=== PATIENT | female | born 2005 | race Caucasian/White ===

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

== ENCOUNTER 2025-06-27 11:43 | Outpatient (REF) | payer BC, SELFPAY ==
[2025-06-27 14:33] LABS: MANUAL DIFF FLAG NO
[2025-06-27 14:38] LABS: Hematocrit 35.0 % (37.0-47.0); Hemoglobin 11.8 g/dl (12.0-16.0); Imm Gran Abs Auto 0.01 X10*3/uL (0.00-0.03); Imm Gran Pct Auto 0.2 % (0.0-0.4); Lymphocytes Absolute Auto 1.8 X10*3/uL (1.2-4.9); Mean Corpuscular HGB Conc 33.7 g/dl (31.0-35.0); Mean Corpuscular Hemoglobin 30.8 pg (27.0-33.0); Mean Corpuscular Volume 91.4 fL (80.0-98.0); NRBC Abs Auto 0.000 X10*3/uL (0.0-0.012); NRBC Pct Auto 0.0 /100WBC (0.0-0.2); Platelet Count 243 X10*3/uL (160-400); Red Blood Count 3.83 X10*6/uL (4.20-5.50); White Blood Count 4.2 X10*3/uL (4.8-10.8)
[2025-06-27 14:53] LABS: Alanine Aminotransferase 21 U/L (0-31); Albumin Level 4.5 g/dL (3.5-5.0); Alkaline Phosphatase 51 U/L (39-117); Aspartate Amino Transferase 26 U/L (5-31); Total Protein 6.6 g/dL (6.5-8.0)
[2025-06-27 15:11] LABS: Cholesterol 124 mg/dL (<200); HDL Cholesterol 48 mg/dL (>40); Magnesium 1.9 mg/dL (1.6-2.6); Triglycerides 85 mg/dL (<150)
[2025-06-27 15:30] LABS: Folate 8.3 ng/mL (> or = 4.0); Vitamin B12 283 pg/mL (200-900)
== END 2025-06-27 11:44 | disposition home or self-care (01) ==
LOC: HO.WFDLDS 11:43
PROVIDERS: Referring Provider Podiatrist; Visit Provider Physician Assistant
DX: F41.1 Generalized anxiety disorder (principal); Z13.220 Encounter for screening for lipoid disorders; Z13.6 Encounter for screening for cardiovascular disorders
CPT/HCPCS: 36415; 80061; 80076; 82607; 82746; 83735; 84443; 85025

== ENCOUNTER 2025-09-02 13:54 | Outpatient (REF) | payer BC, SELFPAY ==
--- OUTSIDE RECORDS SUMMARY | 2025-09-02 07:15 | XMS_ITS ---
Author Organization [facility] Address [address] [place] [address] Care Team Providers Care Systems Security Consultant Name Role Phone Kady Montalvo Primary Care Provider Indigo Garcia Unavailable [phone] Allergies No Known Allergies REASON FOR VISIT Fungal Nails, Skin Problem Medications Medication SIG (Take, Route, Frequency, Duration) Notes Start Date End Date Status clonazePAM Not-Takin g Accutane 20 MG as directed Orally Not-Taking Ciclopirox 8 % 1 application daily to toenails Externally Once a day; Duration: 360 days 08/07/2024 Not-Taking Naftin 1 % 1 application to bot h feet and between toes twice a day Externally Twice a day; Duration: 30 days 06/27/2025 Active Ciclopirox Olamine 0.77 % 1 application Externally Twice a day to both feet and between toes; Duration: 30 days 07/02/2025 Active Terbinafine HCl 250 MG 1 tablet Orally O nce a day; Duration: 30 days Active Doxycycline 40 MG 1 capsule in the morning on an empty stomach Orally Once a day Active Spironolactone 25 MG 1 tablet Orally Onc e a day Active buPROPion HCl ER (XL) 150 MG Oral; Duration: 30 Days Active Venlafaxine HCl ER 75 MG TAKE 1 CAPSULE BY MOUTH IN THE MORNING Oral; Duration: 30 Days Active Social History Tobacco Use: Social History Observation Description Date Details (start date - stop date) Never Smoker NA - NA Tobacco use other than smoking: Question Answer Notes Are you an other tobacco user? No Tobacco Control (Standard) Question Answer Notes Tobacco use: Nonsmoker Additional Findings: Tobacco non-user Current no nsmoker AUDIT-C (Standard) Question Answer Notes Did you have a drink containing alcohol in the p ast year? No Points 0 Interpretation Negative Vital Signs Height 5ft 9in in 09/02/2025 Weight 170 lbs 09/02/2025 BMI 25.1 kg/m2 09/02/2025 Blood pressure systolic 110 mm Hg 09/02/20 25 Blood pressure diastolic 70 mm Hg 025 BMI Percentile 79.3 % 09/02/2025 Encounters Encounter Location Date Provider Diagnosis [facility] [address] 09/02/2025 Indigo Perica Pain in right toe(s) M79.674 ; Onychomycosis B35.1 ; Pain in left toe(s) M79.675 and Tinea pedis of both feet B35.3 Assessments Encounter Date Diagnosis (ICD Code) Assessment Notes Treatment Notes Treatment Clinical Notes Section Notes 09/02/2025 Pain in right toe(s) (ICD-10 - M79.674) 09/02/2025 Onychomycosis (ICD-10 - B35.1) 09/02/2025 Pain in left toe(s) (ICD-10 - M79.675) 09/02/2025 Tinea pedis of both feet (ICD-10 - B35.3) Plan Of Treatment Pending Test Test Name Order Date *Liver Function Test (LFT) 09/02/2025 Next Appt Details Follow Up: prn, Reason: Progress Notes * DONALDToreyJohnDOB: [birth year] (19 yo F)Acc No.[id number]:09/02/2025 Progress Note Patient: John MEDRANO Provider: Kaylynn Arana DPM :2005 A ge:19 Y S ex:Female Date:09/02/2025 Address:[address] [place] [address], [id number] Pcp:Kady Montalvo Subjective: * Chief Complaints: * F ungal NailsSkin Problem * HPI: P ainful Nails: Nature: a alexander, tender, discolored, thick. Location: B oth feet. Duration: s everal years. Course: , improved. Aggravated by: s hoegear causing difficulty standing/walking. Treatments: , OTC Topical Antifungal, Ciclopirox Rx topical gel/solution, Lamisil, Oral Antifungal, relates adherence to recom tx, denies any adverse side effects to medication. S kin problems: Nature: s caling , redness. Location: B /L . Duration: a year or more. Course: i mproved. Treatments: T opical OTC antifungal powder/cream has not relieved condition, Medication ( Ketoconazole 2 percent cream ), Medication ( Naftin). * ROS: G eneral/Constitutional: Nausea d enies, denies. V omiting d enies, denies.?Hunger Thirst d enies, denies. L oss appetite d enies, denies. C hills d enies, denies. F atigue d enies, denies. F ever d enies, denies. N ight Sweats denies, denies. U nexplained weight loss d enies, denies. U nexplained weight gain?denies, denies. H EENTM: Dentures d enies, denies. D izziness d enies, denies. G lasses/contacts d enies, denies. R etinopathy d enies, denies. B lurred/double vision d enies, denies. T MJ d enies, denies. D ischarge/drainage d enies, denies. I mplants d enies, denies. S ore throat d enies, denies. D ental implants?denies, denies. H jeanette of hearing d enies, denies. D ifficulty chewing/swallowing/speaking d enies, denies. N ose bleeds d enies, denies. S ore mouth d enies, denies. R espiratory: On Oxygen d enies, denies. P neumonia/pleurisy d enies, denies. B ronchitis d enies, denies. E mphysema d enies, denies. C oughing?denies, denies. C ough blood d enies, denies. S hortness of breath d enies, denies. W heezing d enies, denies. C ardiovascular: Pacemaker d enies, denies. M SAFETY SUPERVISOR d enies, denies.?WPW d enies, denies. C HF d enies, denies. H eart attack d enies, denies.?Septal defect d enies, denies. R apid beat d enies, denies. C hest pain d enies, denies. A trial Fib. d enies, denies. M urmur/Palpitations d enies, denies. G astrointestinal: Hemorrhoids d enies, denies. S tomach/Abdominal pain?denies, denies. D ark blood stool d enies, denies. I rritable bowel d enies, denies. C onstipation d enies, denies. D iarrhea d enies, denies. H ematology: Swelling d enies, denies. C lots d enies, denies.?Varicose Veins d enies, denies. B ruising d enies, denies. B leeding problem?denies, denies. G enitourinary: Blood urine d enies, denies. F requent/Painfu/urination/bladder control d enies, denies. K idney stones d enies, denies. I nfection (UTI)?denies, denies. N ephropathy d enies, denies. s ex trans dis (STD) d enies, denies. P rostate d enies, denies. M usculoskeletal: Hammertoes d enies, denies. B unions d enies, denies. B ack Pain d enies, denies. M uscle Cramps/ Resting d enies, denies. M uscle cramps / walking d enies, denies. G eneralized aches and pains d enies, denies. W eakness d enies, denies. I nteg.: Haddad d enies, denies. S cars d enies, denies. C orns/calluses d enies, denies. I ngrown nails a dmits, admits. P ainful nails a dmits,admits. O pen Sores d enies, denies. R ashes d enies, denies. N eurologic: Difficulty sleeping d enies, denies. B rain disorder?denies, denies. N umbness d enies, denies. B alance trouble d enies, denies. C onfusion d enies, denies. F ainting/blackouts d enies, denies. T ingling d enies, denies. T remors d enies, denies. * Medical History: * Surgical History: D enies Past Surgical History * Hospitalization/Major Diagno stic Procedure: D enies Past Hospitalization * Family History: M other: alive, diagnosed with Unspecified essential hypertension. F ather: alive. * Social History: T obacco Use: T obacco use other than smoking A re you an other tobacco user? N o Tobacco Control (Standard) T obacco use: N onsmoker A dditional Findings: Tobacco non-user C urrent nonsmoker D rugs/Alcohol: D rugs H ave you used drugs other than those for medical reasons in the past 12 months? N o M iscellaneous: C affeine: yes, frequency:. Children: no. Exercise: no. Marital status: Single. Occupation: Student. D rug/Alcohol: A JOYCE-C (Standard) D id you have a drink containing alcohol in the past year? N o P oints 0 I nterpretation N egative * Medications: T akingDoxycycline 40 MG Capsule Delayed Release 1 capsule in the morning on an empty stomach Orally Once a day Spironolactone 25 MG Tablet 1 tablet Orally Once a day buPROPion HCl ER (XL) 150 MG Tablet Extended Release 24 Hour Oral Venlafaxine HCl ER 75 MG Capsule Extended Release 24 Hour TAKE 1 CAPSULE BY MOUTH IN THE MORNING Oral Terbinafine HCl 250 MG Tablet 1 tablet Orally Once a day Naftin 1 % Cream 1 application to both feet and between toes twice a day Externally Twice a day Ciclopirox Olamine 0.77 % Cream 1 application Externally Twice a day to both feet and between toes Taking Doxycycline 40 MG Capsule Delayed Release 1 capsule in the morning on an empty stomach Orally Once a day Taking Spironolactone 25 MG Tablet 1 tablet Orally Once a day Taking buPROPion HCl ER (XL) 150 MG Tablet Extended Release 24 Hour Oral Taking Venlafaxine HCl ER 75 MG Capsule Extended Release 24 Hour TAKE 1 CAPSULE BY MOUTH IN THE MORNING Oral Taking Terbinafine HCl 250 MG Tablet 1 tablet Orally Once a day Taking Naftin 1 % Cream 1 application to both feet and between toes twice a day Externally Twice a day Taking Ciclopirox Olamine 0.77 % Cream 1 application Externally Twice a day to both feet and between toes Not-Taking/PRNclonazePAM Accutane 20 MG Capsule as directed Orally Ciclopirox 8 % Solution 1 application daily to toenails Externally Once a day Medication List reviewed and reconciled with the patientNot-Taking/PRN clonazePAM Not-Taking/PRN Accutane 20 MG Capsule as directed Orally Not-Taking/PRN Ciclopirox 8 % Solution 1 application daily to toenails Externally Once a day Medication List reviewed and reconciled with the patient * Allergies: N .K.D.A.yes[Allergies Verified] Objective: * Vitals: H t: 5ft 9in, Wt:170, BMI:25.1, Shoe size: 10, BP:110/70mm Hg, Ht-cm: 175.26 cm, Wt-k.11 kg, Wt %: 91.68 %, BMI %: 79.3 %, Ht %: 96.79 %. * Examination: G eneral Examination: GENERAL APPEARANCE: R javieals a pleasant, alert, well-nourished, well-developed, well hydrated individual, who demonstrates proper attention to hygiene/body habitus, and is in no acute distress, Pt serves as own h istorian for office visit today. ORIENTED: p erson, place, and time. N eurological: SENSORY: N eurological exam reveals intact sensorium, pain sensation normal, vibration sensation intact, pinprick sensation is normal in the lower extremities, Pt denies, anesthesia, burning, paresthesia, tingling, B/L. V ascular: DP PULSES (B): 3 /4, B/L. PT PULSES (B): 3 /4, B/L. CAPILLARY FILL TIME: i mmediate, all digits, B/L. TROPHIC CONDITION-TEXTURE/ELASTICITY/TURGOR/HAIR GROWTH (B):?normal, B/L. TEMPERTURE GRADIENT (C): w arm to cool, proximal to distal, B/L. PIGMENTATION: n ormal, B/L. EDEMA (C): a bsent, B/L. D ermatologic: SKIN FINDINGS: , Skin shows approximately 90 percent LESS, sign(s) of, erythema, scaling, in a moccasin fashion, no fissure(s) present, B/L; maceration 4th webspace left . O rthopedic: MUSCLE STRENGTH: 5 /5 all groups in a symmetrical fashion , B/L. N ails: NAILS are: d ystrophic, lytic, greater than 3mm thick, discolored and friable with crumbly malodorous subungual debris, with pain on palpation, , TA, T1, T2, T3, T4, T5, T6, T7, T8, T9, proximal clearing of nail approximately 10 percent. ? Assessment: * Assessment: 1. P ain in right toe(s) - M79.674 2 . O nychomycosis - B35.1 (Primary)? 3. P ain in left toe(s) - M79.675 4 . T inea pedis of both feet - B35.3 Plan: * Treatment: * Procedure Codes: * Preventive Medicine: Counseling: D iscussion: - 13: Office or other outpatient visit for the evaluation and management of an established patient, which required a medically appropriate history and/or examination and LOW level of DECISION MAKING for: 1 STABLE ACUTE UNCOMPLICATED PROBLEM, 2 OR MORE MINOR PROBLEMS, OR 1 STABLE CHRONIC PROBLEM, THAT POSE(S) A LOW RISK FOR MORBIDITY/MORTALITY. The visit on the day of the encounter encompassed interpreting the data and educating the patient as to the nature of their condition, treatment options available according to their individual PMH, meds, allergies, and overall health/living conditions, as well as any potential risks or complications that may occur from a failure to adhere to, and participate in, the recommended course of therapy. The discussion included a complete verbal, and/or written explanation of the examination results, any x-rays taken, the proposed diagnosis, and outline of the treatment plan. A schedule for future care needs was also explained. The patient verbalized an understanding of the instructions at this time and agreed to be an active participant in their treatment. If the patient should think of any questions or concerns after the visit, I have encouraged the patient to call the office. F /U Fungal nails: R virginiawed with the patient the time needed before we start seeing results with the oral Lamisil. Discussed the results that we hope to see and that veronica a topical medication to the nails may also help. We discussed the duration of time that the Lamisil will work on the nails for. We should wait 1 year before we take the Lamisil again., Repeat LFT ordered. Chante Johnson: Jen mercado recent successful results to treatment, The patient is to cont the rx cream as directed, PREVENTIVE STRATEGIES were reviewed with the patient to avoid recurrent issues ., recommend paint webspaces with betadine. Screening/Special Tests: F all Risk Screening: N o falls in the past year F ALLS: Screening for Future Fall Risk Have you had any falls with injury in the past year? N o * Follow Up: p rn * Images: * Sign off status: Completed true * Provider: Kaylynn Arana, DPArmando Date: 11/03/2024 Generated for Delmar franklin/Toshia/Jeremías on: 11/03/2024 08:14 PM EST History and Physical Notes * HPI (History of Present Illness) Category Sub-Category Detail Notes Category Not es Painful Nails Aggravated by: shoegear causing difficulty standing/walking Course: , improved Duration: several years Location: Both feet Nature: aching, tender, disc olored, thick Treatments: , OTC Topical Antifu ngal, Ciclopirox Rx topical gel/solution, Lamisil, Oral Antifungal, relates adherence to recom tx, denies any adverse side effects to medication Skin problems Nature: scaling , redness Location: B/L Duration: a year or more Course: improved Treatments: Topical OTC antifung al powder/cream has not relieved condition, Medication ( Ketoconazole 2 percent cream ), Medication ( Naftin) Examination Category Sub-Category Detail Notes Category Not es Neurological SENSORY: Neurological exa m reveals intact sensorium, pain sensation normal, vibration sensation intact, pinprick sensation is normal in the lower extremities, Pt denies, anesthesia, burning, paresthesia, tingling, B/L Dermatologic SKIN FINDINGS: , Skin shows nati roximately 90 percent LESS, sign(s) of, erythema, scaling, in a moccasin fashion, no fissure(s) present, B/L; maceration 4th webspace left Orthopedic MUSCLE STRENGTH: 5/5 all groups in a symmetrical fashion , B/L General Examination GENERAL APPEARANCE: Reveals a pleasant, alert, well-nourished, well-developed, well hydrated individual, who demonstrates proper attention to hygiene/body habitus, and is in no acute distress, Pt serves as own historian for office visit today ORIENTED: person, place, and t osiel Vascular DP PULSES (B): 3/4, B/L PT PULSES (B): 3/4, B/L CAPILLARY FILL TIME: immediate, all digi ts, B/L TEMPERTURE GRADIENT (C): warm to cool, p roximal to distal, B/L TROPHIC CONDITION-TEXTURE/ELASTICITY/TURGOR/HAIR GROWTH (B): normal, B/L EDEMA (C): absent, B/L PIGMENTATION: normal, B/L Nails NAILS are: dystrophic, lyti c, greater than 3mm thick, discolored and friable with crumbly malodorous subungual debris, with pain on palpation, , TA, T1, T2, T3, T4, T5, T6, T7, T8, T9, proximal clearing of nail approximately 10 percent
[2025-09-02 18:36] LABS: Alanine Aminotransferase 16 U/L (0-31); Albumin Level 4.6 g/dL (3.5-5.0); Alkaline Phosphatase 47 U/L (39-117); Aspartate Amino Transferase 25 U/L (5-31); Total Protein 6.6 g/dL (6.5-8.0)
[2025-09-02 19:15] LABS: Alanine Aminotransferase 13 U/L (0-31); Albumin Level 4.6 g/dL (3.5-5.0); Alkaline Phosphatase 47 U/L (39-117); Anion Gap 9 (12-20); Aspartate Amino Transferase 23 U/L (5-31); Blood Urea Nitrogen 13 mg/dL (9-16); Calcium 9.2 mg/dL (8.4-10.2); Carbon Dioxide 27 mmol/L (22-29); Chloride 107 mmol/L (96-108); Estimated Glomerular Filt Rate > 60; Iron 223 mcg/dL (30-160); Percent Iron Saturation 90 % (15-50); Potassium 3.7 mmol/L (3.3-5.1); Sodium 139 mmol/L (135-145); Total Iron Binding Capacity 248 mcg/dL (228-428); Total Protein 6.7 g/dL (6.5-8.0); Unsaturated Iron Binding < 25 ug/dL
[2025-09-02 19:31] LABS: Ferritin 35 ng/mL (10-122)
--- OUTSIDE RECORDS SUMMARY | 2025-09-02 20:15 | XMS_ITS | Encounter Summary ---
Author Organization [facility] Address [address] [place] [phone] Phone Care Team Providers Care Supervisor Green End Department Name Role Phone Latoya Lobato MD Primary Care Provider Encounter Details Date Type Department Care Team (Late st Contact Info) Description 04/16/2011 Documentation [facility] [address] [place] [address] Family Medicine, Physician [address] [place] [address] Social History Tobacco Use Types [...] on filedocumented in this encounter Care Teams Supervisor Green End Department Relationship Specialty Start Date End Date Latoya Lobato MD [address] [place] [id number] PCP - General Pediatrics 10/07/22 documented as of this encounter
--- OUTSIDE RECORDS SUMMARY | 2025-09-02 20:15 | XMS_ITS | Encounter Summary ---
Author Organization [facility] Address [address] [place] [phone] Phone Care Team Providers Care Manager Sharepoint Name Role Phone Latoya Lobato MD Primary Care Provider [phone] Encounter Details Date Type Department Care Team (Late st Contact Info) Description 06/26/2013 Documentation [facility] [place] [facility] [address] [place] [address] Family Medicine, Physician [address] [id number] Social History Tobacco Use Types Packs/Day Years [...] on filedocumented in this encounter Care Teams Manager Sharepoint Relationship Specialty Start Date End Date Latoya Lobato MD [address] [place] [id number] PCP - General Pediatrics 10/07/22 documented as of this encounter
--- OUTSIDE RECORDS SUMMARY | 2025-09-02 20:15 | XMS_ITS | Encounter Summary ---
Author Organization [facility] Address [address] [place] [address] Phone Care Team Providers Care Watch Assembler Name Role Phone Latoya Lobato MD Primary Care Provider [phone] Encounter Details Date Type Department Care Team (Late st Contact Info) Description 06/09/2012 Documentation [facility] [place] [address] [place] [address] Family Medicine, Physician [address] [place] [address] Social History Tobacco Use Types [...] on filedocumented in this encounter Care Teams Watch Assembler Relationship Specialty Start Date End Date Latoya Lobato MD [address] [place] [id number] PCP - General Pediatrics 10/07/22 documented as of this encounter
--- OUTSIDE RECORDS SUMMARY | 2025-09-02 20:15 | XMS_ITS | Encounter Summary ---
Author Organization [facility] Address [address] [place] [address] Phone Care Team Providers Care Ranch Hand Supervisor Name Role Phone Latoya Lobato MD Primary Care Provider Encounter Details Date Type Department Care Team (Late st Contact Info) Description 09/14/2011 Documentation [facility] [place] Family Medicine [address] [place] [address] Family Medicine, Physician [address] [place] [address] Social History Tobacco Use Types [...] on filedocumented in this encounter Care Teams Ranch Hand Supervisor Relationship Specialty Start Date End Date Latoya Lobato MD [address] [place] [place] [id number] PCP - General Pediatrics 10/07/22 documented as of this encounter
--- OUTSIDE RECORDS SUMMARY | 2025-09-02 20:15 | XMS_ITS | Encounter Summary ---
Author Organization [facility] Address [address] [place] [address] Phone Care Team Providers Care Garage Door Installer Name Role Phone Latoya Lobato MD Primary Care Provider Encounter Details Date Type Department Care Team (Late st Contact Info) Description 06/09/2012 Documentation [facility] [place] [address] [place] [address] Family Medicine, Physician [address] [place] [address] Social History Tobacco Use Types [...] on filedocumented in this encounter Care Teams Garage Door Installer Relationship Specialty Start Date End Date Latoya Lobato MD [address] [place] [phone] PCP - General Pediatrics 10/07/22 documented as of this encounter
--- OUTSIDE RECORDS SUMMARY | 2025-09-02 20:15 | XMS_ITS | Encounter Summary ---
Author Organization [facility] Address [address] [place] [address] Phone Care Team Providers Care Machine Pan Greaser Name Role Phone Latoya Lobato MD Primary Care Provider [phone] Encounter Details Date Type Department Care Team (Late st Contact Info) Description 05/17/2011 Documentation [facility] [address] [place] [address] Family Medicine, Physician [address] [place] [address] Social History Tobacco Use Types [...] on filedocumented in this encounter Care Teams Machine Pan Greaser Relationship Specialty Start Date End Date Latoya Lobato MD [address] [place] [address] PCP - General Pediatrics 10/07/22 documented as of this encounter
--- OUTSIDE RECORDS SUMMARY | 2025-09-02 20:15 | XMS_ITS | Clinical Summary ---
Author Organization [facility] Address [address] [place] [address] Phone Care Team Providers Care Treatment Counselor Name Role Phone Latoya Lobato MD Primary [...] 2 (two) times a day. 4 Active clonazePAM 0.5 MG tablet Take 0.5 [...] Plan (12/19/2023 12:33 PM EDT): Refer to PARTY DEMONSTRATOR Chronic headaches 12/19/2023 Overview (01/25/2024): Started with some WLASH after concussion 8th grade Increased frequency and [...] dizzy and nauseous since then. Seen at the [facility] ED thought to be a vasovagal episode Mild scoliosis 05/16/2017 Resolved Problems Problem Noted Date Diagnosed Date Resolved Date Major depression 12/21/2019 12/19/2023 Overview (10/19/2022): Seen by AKILAH Rodríguez 02/21/20 in telehealth visit after seen by Freida Pina NP 02/16/20 for medication and started on lamotrigine 25 mg daily to increase slowly On wait list now for Partial Hospitalizaiton - also he recommends sports concussion clinic since much of her problems began after her concussion Assessment & Plan (10/19/2022 1:07 PM EST): As of 2022 - seeing Mary Carmen Pnia for meds and Charmaine Parker for therapy [...] 65 03/20/2024 8:39 AM EDT Temperature 36.3 C (97.4 F) 03/20/2024 8:39 AM EDT Respiratory Rate - - Oxygen Saturation - [...] HPV Vaccines (1 - 3-dose series) 2020 Hepatitis C Screening 2023 Men B Vaccine (2 of 2 - Trumenba SCDM 2-dose series) 07/29/2024 01/27/2024 Chlamydia and Gonorrhea Screening 09/19/2024 12/19/2023 COVID-19 Vaccine ( season) 2025 08/30/2021, 08/09/2021 DTaP,Tdap,and Td Vaccines (7 - Td or [...] Varicella Vaccines Completed 12/25/2013, 0 03/09/2010, 11/23/2006 Meningococcal Vaccine Aged Out 05/08/2021, 017 No longer eligible based on patient's age to complete this topic Influenza Vaccines Completed 06/13/2025, 1 , 06/24/2023, Additional history exists Procedures * Due to [place] state law, this organization might not be sharing sensitive test results. Procedure Name Priority Date/Time Associated Diagnosis Comments CHLAMYDIA AND GONORRHEA, AMPLIFIED Routine 12/19/2023 1:00 PM EDT Encounter for screening examination for chlamydial infection from Last 3 Months or Most Recently Relevant to Health Maintenance Results * Due to [place] state law, this organization might not be sharing sensitive test results. * Chlamydia and Gonorrhoea, Amplified (12/19/2023 1:00 PM EDT) C trach CODY Negative Negative [facility] N gonorrhoeae CODY Negative Negative [facility] Urine (Urine) 12/19/2023 1:0 0 PM EDT 12/19/2023 Comment:Urine Narrative [facility] - 12/21/2023 8:10 AM EDT Performed at: 01 - [facility] [address] [id number] Casework Supervisor: Jimena Manjarrez MD, Phone: [phone] us Trish Teran MD LAB MICROBIOLOGY - GENERAL ORD ERABLES Final Result [facility] [address] [place] [address] from Last 3 Months or Most Recently Relevant to Health Maintenance Insurance BCBS BLUE CARD OUT OF STATE Care Teams Treatment Counselor Relationship Specialty Start Date End Date Latoya Lobato MD [address] [place] [address] PCP - General Pediatrics 10/07/22
--- OUTSIDE RECORDS SUMMARY | 2025-09-02 20:15 | XMS_ITS | Encounter Summary ---
Author Organization [facility] Address [address] [place] [address] Phone Care Team Providers Care Java Engineer Name Role Phone Latoya Lobato MD Primary Care Provider Encounter Details Date Type Department Care Team (Late st Contact Info) Description 05/17/2011 Documentation [facility] [place] Family Medicine [address] [place] [address] Family Medicine, Physician [address] [place] [address] Social History Tobacco Use Types [...] on filedocumented in this encounter Care Teams Java Engineer Relationship Specialty Start Date End Date Latoya Lobato MD [address] [place] [address] PCP - General Pediatrics 10/07/22 documented as of this encounter
--- OUTSIDE RECORDS SUMMARY | 2025-09-02 20:15 | XMS_ITS | Encounter Summary ---
Author Organization [facility] Address [address] [place] [address] Phone Care Team Providers Care Cotton Classer Name Role Phone Latoya Lobato MD Primary Care Provider Encounter Details Date Type Department Care Team (Late st Contact Info) Description 05/17/2011 Documentation [facility] [place] Family Medicine [address] [place] [address] Family Medicine, Physician [address] [place] [address] Social History Tobacco Use Types [...] on filedocumented in this encounter Care Teams Cotton Classer Relationship Specialty Start Date End Date Latoya Lobato MD [address] [place] [address] PCP - General Pediatrics 10/07/22 documented as of this encounter
--- OUTSIDE RECORDS SUMMARY | 2025-09-02 20:15 | XMS_ITS | Encounter Summary ---
Author Organization [facility] Address [address] [place] [address] Phone Care Team Providers Care General Scrap Worker Name Role Phone Latoya Lobato MD Primary Care Provider Encounter Details Date Type Department Care Team (Late st Contact Info) Description 05/17/2011 Documentation [facility] [place] Family Medicine [address] [place] [address] Family Medicine, Physician [address] [place] [address] Social History Tobacco Use Types [...] on filedocumented in this encounter Care Teams General Scrap Worker Relationship Specialty Start Date End Date Latoya Lobato MD [address] [place] [address] PCP - General Pediatrics 10/07/22 documented as of this encounter
--- OUTSIDE RECORDS SUMMARY | 2025-09-02 20:15 | XMS_ITS | Encounter Summary ---
Author Organization [facility] Address [address] [place] [address] Phone Care Team Providers Care It Infrastructure Project Manager Name Role Phone Latoya Lobato MD Primary Care Provider Encounter Details Date Type Department Care Team (Late st Contact Info) Description 06/09/2012 Documentation [facility] [place] Family Medicine [address] [place] [address] Family Medicine, Physician [address] [place] [address] Social History Tobacco Use Types [...] on filedocumented in this encounter Care Teams It Infrastructure Project Manager Relationship Specialty Start Date End Date Latoya Lobato MD [address] [place] [address] PCP - General Pediatrics 10/07/22 documented as of this encounter
--- OUTSIDE RECORDS SUMMARY | 2025-09-02 20:15 | XMS_ITS | Patient Health Record ---
Author Organization [facility] Address [address] [place] [address] Care Team Providers Care Excavation Laborer Name Role Phone Kady Montalvo Primary Care Provider Indigo Garcia Unavailable [phone] Allergies No Known Allergies Reason For Referral No Information Medications Medication SIG (Take, Route, Frequency, Duration) [...] THE MORNING Oral; Duration: 30 Days Active Immunizations Vaccine Route Administration Date Status Comme nts Influenza Unknown 06/19/2025 Administered Social History Tobacco Use: Social History Observation [...] No Points 0 Interpretation Negative Vital Signs Blood pressure diastolic 70 mm Hg 09/02/2025 BMI Percentile 79.3 % 09/02/2025 Height 5ft 9in in 09/02/2025 Blood pressure systolic 110 mm Hg 09/02/2025 Weight 170 lbs 09/02/2025 BMI 25.1 kg/m2 09/02/2025 Encounters Encounter Location Date Provider Diagnosis [address] [address] 06/27/2025 Indigo Perica Pain in right toe(s) M79.674 ; Onychomycosis B35.1 ; Pain in left toe(s) M79.675 and Tinea pedis of both feet B35.[address] [address] 09/02/2025 Indigo Perica Pain in right toe(s) M79.674 ; Onychomycosis B35.1 ; Pain in left toe(s) M79.675 and Tinea pedis of both feet B35.[address] [address] 07/02/2025 Indigo Perica [address] [address] 09/02/2025 Indigo Perica Assessments Encounter Date Diagnosis (ICD Code) Assessment Notes Treatment Notes Treatment Clinical Notes Section Notes 06/27/2025 Pain in right toe(s) (ICD-10 - M79.674) 06/27/2025 Onychomycosis (ICD-10 - B35.1) 09/02/2025 Pain in right toe(s) (ICD-10 - M79.674) 09/02/2025 Onychomycosis (ICD-10 - B35.1) 09/02/2025 Pain in left toe(s) (ICD-10 - M79.675) 06/27/2025 Pain in left toe(s) (ICD-10 - M79.675) 06/27/2025 Tinea pedis of both feet (ICD-10 - B35.3) Patient Educated with: ATHELETE .pdf (ATHELETE .pdf) 09/02/2025 Tinea pedis of both feet (ICD-10 - B35.3) Plan Of Treatment Pending Test Test Name Order Date *Liver Function Test (LFT) 06/27/2025 *Liver Function Test (LFT) 09/02/2025 Insurance Providers Payer Name Payer Address Payer Phone Subscriber Number Group Number Insured Name Patient Relationship to Insured Coverage Start Date Coverage End Date [facility] [employer] Others [address] [place] [address] [id number] Self - patient is the insured Medical (General) History Medical History History ICD Code Anxiety Depression Warts Acne
--- OUTSIDE RECORDS SUMMARY | 2025-09-02 20:15 | XMS_ITS | Clinical Summary ---
Author Organization [facility] Address [address] [facility] [address] [place] [address] Phone Care Team Providers Care Parole Supervisor Name Role Phone Unknown, Unknown Primary Care Provider Unavai lable Allergies No known active allergies Medications clonazePAM (KLONOPIN) 0.5 MG tablet Take 0.5 mg by mouth 2 (two) times a day. 05/23/2024 Active spironolactone (ALDACTONE) 100 MG tablet Take 1 tablet by mouth 2 (two) times a day. 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 Seen at [facility] ED thought to be a vasovagal episode Major depression 12/21/2019 Overview (06/04/2024): Seen by [facility] Dr Rodríguez 02/21/20 in telehealth visit after seen by Freida Pina NP 02/16/20 for medication and started on lamotrigine 25 mg daily to increase slowly On wait list now for Partial Hospitalizaiton - also he recommends sports concussion clinic since much of her problems began after her concussion Anxiety 11/03/2019 Mild scoliosis 05/16/2017 Immunizations Immunization Administration Dates Next Due DTaP 03/09/2010,02/20/2007 DTaP-Hep B-IPV 05/31/2006,03/14/2006,01/10/2006 Hepatitis A, ped/adol, 2 dose 05/29/2007, 007 Hepatitis B 2005 Hib,HbOC 02/20/2007, 6,03/14/2006,01/10 INFLUENZA, SPLIT VIRUS, TRIVALENT PF 07/15/2017, 06/24/2016 INFLUENZA, SPLIT VIRUS, TRIV ALENT W/ PRESERVATIVE IM 07/12/2021,07/29/2010,07/03/2009 IPV 03/09/2010 Influenza Quadrivalent MDCK Preservative Free IM 06/24/2023 Influenza Quadrivalent Prese rvative Free IM 06/10/2020,07/11/2018 Influenza quadrivalent nasal 06/23/2015, 07/09/2014,07/19/2013,06/08,05/14/2011,06/08/2010 MMR 03/09/2010,11/23/2006 Meningococcal B, recombinant (MenB-FHbp) 01/27/2024 Meningococcal MCV4P 05/08/2021,05/16/2017 Pneumococcal conjugate, PCV 7 02/20/2007 ,05/31/2006,03/14/2006,01/10 Tdap 05/16/2017 Varicella 12/25/2013,03/09/2010 Social History Tobacco Use Types Packs/Day Years Used Date Smoking Tobacco: Never Smokeless Tobacco: Never Education Answer Date Recorded Are you interested in more education? Not on fermín e 06/05/2024 Are you concerned about learning? Not on file 06/05/2024 No 06/05/2024 No 06/05/2024 Digital Access Answer Date Recorded No 06/05/2024 No 06/05/2024 Reliable internet access at home? Not on file 06/05/2024 Device with a working camera? Not on file Comments Unknown Sex and Gender Information Value Date Recorded Sex Assigned at Not on file Legal Sex Female 1:30 PM EDT Gender Identity Not on file Sexual Orientation Not on file Last Filed Vital Signs Vital Sign Reading Time Taken Comments Blood Pressure 107/63 06/04/2024 2:52 PM EDT Pulse 57 06/04/2024 2:52 PM EDT Temperature 36.8 C (98.3 F) 06/04/2024 2:52 PM EDT Respiratory Rate 18 06/04/2024 2:52 PM EDT Oxygen Saturation 98% 06/04/2024 2:52 PM EDT Inhaled Oxygen Concentration - - Weight - - Height - - Body Mass Index - - Plan of Treatment Health Maintenance Due Date Last Done Comments POTASSIUM LEVEL 2005 BMI ASSESSMENT 2008 DEVELOPMENTAL/BEHAVIORAL SCREENING (PHQ, PSC, or SWYC) 2008 DEPRESSION SCREENING 2017 SMOKING Hx and SMOKELESS TOBACCO SCREENING 2018 HPV VACCINES (1 - 3-dose series) 2020 ADOLESCENT UNIVERSAL LIPID SCREENING 2022 HEPATITIS C SCREENING 2023 HIV ONE-TIME SCREENING (18-65 YEARS) 2023 MENINGOCOCCAL VACCINES (B) (2 of 2 - Trumenba SCDM 2-dose series) 07/29/2024 01/27/2024 INFLUENZA VACCINE (#1) 2025 , 07/12/2021, 06/10/2020, Additional history exists COVID-19 VACCINE (3 - season) 2025 08/30/2021, 08/09/2021 CHLAMYDIA SCREENING 06/04/2025 06/04/2024 COMBINED DTaP,Tdap,Td (7 - Td or Tdap) 05/16/2027 05/16/2017, 03/09/2010, 02/20/2007, Additional history exists HEPATITIS B VACCINES Completed 05/31/2006, 03/14/2006, 01/10/2006, Additional history exists HIB VACCINES Completed 02/20/2007, 05/20, 03/14/2006, Additional history exists PNEUMOCOCCAL VACCINES (0-49 years) Aged Out 02/20/2007, 05/31/2006, 03/14/2006, Additional history exists No longer eligible based on patient's age to complete this topic HEPATITIS A VACCINES Completed 05/29/2007, 11/24/19 MMR VACCINES Completed 03/09/2010, 03/2007, 11/23/2006 VARICELLA VACCINES Completed 12/25/2013, 0 03/09/2010, 11/23/2006 MENINGOCOCCAL VACCINES (ACWY) Aged Out 05/08/2021, 05/16/2017 No longer eligibl e based on patient's age to complete this topic Medical Devices Not on file Procedures Procedure Name Priority Date/Time Associated Diagnosis Comments CHLAMYDIA TRACHOMATIS AND NEISSERIA GONORRHOEAE NUCLEIC ACID DETECTION Routine 06/04/2024 3:32 PM EDT Dysuria from Last 3 Months or Most Recently Relevant to Health Maintenance Results * Chlamydia Trachomatis and Neisseria Gonorrhoeae Nucleic Acid Detection (06/04/2024 3:32 PM EDT) CHLAMYDIA TRACHOMATIS Not Detected Not Detected [facility] NEISERIA GONORRHOEAE Not Detected Not Detected [facility] SPECIMEN TYPE URINE [facility] Other (Endocervical) 06/04/2024 3:32 PM EDT 06/04/2024 4:41 PM EDT Leighann Servin ACID EXTRACTOR LAB GENERAL ORDERABLES Ashley mann Result [facility] [address] [place], [place] [id number] from Last 3 Months or Most Recently Relevant to Health Maintenance [place] [address] [place] [address] OUT OF STATE PPO PPO PPO BLUE CROSS OUT OF [facility] PPO BLUE CROSS OUT OF STATE PPO BLUE CROSS OUT OF STATE PPO Care Teams Parole Supervisor Relationship Specialty Start Date End Date Unknown, Unknown, PCP - General 06/04/24 Additional Source Comments The information contained in this document represents components of the legal health record. It is not the complete legal health record.[facility]
--- OUTSIDE RECORDS SUMMARY | 2025-09-02 20:15 | XMS_ITS | Encounter Summary ---
Author Organization [facility] Address [address] [place] [address] Phone Care Team Providers Care Fagot Heater Helper Name Role Phone Latoya Lobato MD Primary Care Provider Encounter Details Date Type Department Care Team (Late st Contact Info) Description 05/05/2017 Conversion Encounter [facility] [address] [place] [address] Social History Tobacco Use Types Packs/Day Years [...] on filedocumented in this encounter Care Teams Fagot Heater Helper Relationship Specialty Start Date End Date Latoya Lobato MD [address] [place] [address] PCP - General Pediatrics 10/07/22 documented as of this encounter
--- OUTSIDE RECORDS SUMMARY | 2025-09-02 20:15 | XMS_ITS | Encounter Summary ---
Author Organization [facility] Address [address] [place] [address] Phone Care Team Providers Care Unix Developer Name Role Phone Latoya Lobato MD Primary Care Provider [phone] Reason for Visit * Reason Comments Med Refill Encounter Details Date Type Department Care Team (Late st Contact Info) Description 06/24/2023 Refill [facility] [place] [address] [place] [address] Celine Mckee MD [address] [place] [address] Pill esophagitis Social History Tobacco Use Types [...] esophagitis documented in this encounter Care Teams Unix Developer Relationship Specialty Start Date End Date Latoya Lobato MD [address] [place] [address] PCP - General Pediatrics 10/07/22 documented as of this encounter
== END 2025-09-02 13:55 | disposition home or self-care (01) ==
LOC: HO.WFDLDS 13:54
PROVIDERS: Physician Assistant; Visit Provider Podiatrist
DX: B35.1 Tinea unguium (principal); F41.1 Generalized anxiety disorder; F33.9 Major depressive disorder, recurrent, unspecified; D64.9 Anemia, unspecified; Z13.220 Encounter for screening for lipoid disorders
CPT/HCPCS: 36415; 80053; 80076; 82248; 82728; 83540